=== PATIENT | male | born 1950 | race Caucasian/White ===

== ENCOUNTER → 2017-05-23 | Day surgery (SDC) | payer OTHER ==
[~2017-05-23] MED LIST: ACET500T68 PO; ASPI-630 PO; ASPI81TA50 PO; BACL10TA PO; CELE200C PO; DULO60CA6 PO; GABA-586 PO; HYDR25TA PO; IV RINGERS,LACTATED 1000ML 1,000 ML IV SCH; MORP15TA PO; MORP60TA PO; OMEG500C PO; OMEP20TA8 PO; ONDA4TAB7 PO; ONDANSETRON PF 4 MG/2 ML VIAL. IV PRN; OXYC-327 PO; OXYC30TA PO; PRAV20TA2 PO; PROCHLORPERAZINE 10 MG/2 ML VIAL. IV PRN; PROPOFOL 40 ML IV ONE; RANI150T2 PO; RIVA10TA PO; SODIUM PHOSPHATES 19/7GM 133 ML ENEMA. ONE; SODIUM PHOSPHATES 19/7GM 133 ML ENEMA. PR ONE; TRAZ50TA15 PO; WARF-78 PO; fentaNYL PF VIAL 100 MCG/2 ML VIAL IV PRN
--- NOTE | 2017-05-23 08:27 | PDOC1 ---
HISTORY & PHYSICAL H&P Arturo Moya [id number] 1950 03/29/2017 02:00 PM 11/13 [facility] [employer] [facility] PATIENTS [facility] [address] [place] [id number] Ph. [phone] Patient: Arturo Moya Date of : 1950 Date: 03/29/2017 2:00 PM Visit Type: Consult This 66 year old male presents for Dysphagia and Rectal pain. History of Present Illness: 1. Dysphagia The symptoms occur with solids and liquids which cause choking and gagging with food sticking in the lower chest. The symptoms are felt to be related to meals. The symptoms are not related to history of stroke. There is no history of Yan's esophagus, reflux or stroke. The patient denies aggravating factors. The patient denies relieving factors. The patient is also experiencing choking and food sticking. The patient denies anorexia, bloating, chest pain, hoarseness or nausea. Additional information: has been having periodic episodes of food impaction. 2. Rectal pain Has issue with some rectal pain. Has history of multiple colonic polyp removed before and also had partial colectomy. INTAKE COMMENTS: Intake Comments: Nurse Note: the pt states that he is having rectal pain and dysphagia. The pt states that he has had a partial colectomy. He states that he has a hx of colon polyps. PROBLEM LIST: No active problems PAST MEDICAL/SURGICAL HISTORY (Detailed) Disease/disorder Onset Date Management Date Comments knee replacement Hip replacement Colectomy Medications (Active): Started Medication Directions Instruction Stopped aspirin 325 mg tablet take 2 tablet by oral route every 6 hours as needed gabapentin take 1 capsule by oral route 3 times every day omeprazole take 1 capsule by oral route every day before a meal Tylenol 325 mg tablet take 1 tablet by oral route every 4 hours as needed Allergies: Ingredient Reaction Medication Name Comment NAPROXEN SODIUM Aleve IBUPROFEN REVIEW OF SYSTEMS System Neg/Pos Details Constitutional Negative Chills, fever, malaise and weight loss. ENMT Negative Hoarseness and sore throat. Eyes Negative Double vision. Respiratory Negative Dyspnea and wheezing. Cardio Negative Chest pain and irregular heartbeat/palpitations. GI Positive Choking, Food sticking, See HPI. GI Negative Anorexia, bloating, nausea and see HPI. Negative Dysuria and hematuria. Endocrine Negative Cold intolerance and heat intolerance. Psych Negative Anxiety. Integumentary Negative Hives and rash. MS Negative Joint pain. Osmel/Lymph Negative Easy bleeding and easy bruising. Allergic/Immuno Negative Food allergies. VITAL SIGNS Time BP mm/Hg Pulse /min Resp /min Temp F Ht ft Ht in Ht cm Wt lb Wt kg BMI kg/ m2 BSA m2 O2 Sat% 3:24 PM 98.0 194.00 87.997 Time Measured by 3:24 PM Gabby Rivera PHYSICAL EXAM: Exam Findings Details Constitutional Normal Well developed. Eyes Normal Conjunctiva - Right: Normal, Left: Normal. Sclera - Right: Normal, Left: Normal. Nasopharynx Normal Lips/teeth/gums - Normal. Neck Exam Normal Inspection - Normal. Thyroid gland - Normal. Respiratory Normal Inspection - Normal. Auscultation - Normal. Cardiovascular Normal Regular rate and rhythm. No murmurs, gallops, or rubs. Vascular Normal Pulses - Carotids: Normal, Femoral: Normal, Dorsalis pedis: Normal. Abdomen Normal Inspection - Normal. Anterior palpation - No guarding. No abdominal tenderness. No hepatic enlargement. No splenic enlargement. No hernia. No ascites. Skin Normal Inspection - Normal. Extremity Normal No edema. Psychiatric * Oriented to time, place, person and situation. Psychiatric Normal Appropriate mood and effect. Assessment/Plan # Detail Type Description 1. Assessment Dysphagia, unspecified type (R13.10). Patient Plan schedule EGD at [facility] Plan Orders Further diagnostic evaluations ordered today include(s) EGD w/ dilation over guidewire to be performed today. 2. Assessment History of colon polyps (Z86.010). Patient Plan schedule Colonoscopy at [facility] Plan Orders Further diagnostic evaluations ordered today include(s) Colonoscopy to be performed today. He is to schedule a follow-up visit with Larry Thompson MD upon completion of work-up Electronically signed by: Larry Thompson MD 03/29/2017 04:28 PM Document generated by: Larry Thompson 03/29/2017 04:28 PM Ranjit Martínez MD, Family Practice; Laith Colbert MD Internal Medicine; Ousmane Herron MD, Internal Medicine; Pete Thompson MD Internal Medicine; Larry Thompson MD, Gastroenterology; Ryne De Oliveira MD, Rheumatology, S. Amanuel Castle, Physical Medicine[facility] [employer] ------ 05/23/17 Patient seen and examined. No change in H&P. LARRY THOMPSON MD May 23, 2017 08:27
[2017-05-23 09:28] VITALS: BP 115/85
== END | disposition home or self-care (01) ==
LOC: ENDOS 07:42 → EEVIPCON 08:30
PROVIDERS: ATTEND Internal Medicine Gastroenterology
DX: Z09 Encounter for follow-up examination after completed treatment for conditions other than malignant neoplasm (principal); Z87.19 Personal history of other diseases of the digestive system; K60.2 Anal fissure, unspecified; K62.89 Other specified diseases of anus and rectum; E78.00 Pure hypercholesterolemia, unspecified; K21.9 Gastro-esophageal reflux disease without esophagitis; M19.90 Unspecified osteoarthritis, unspecified site; E11.9 Type 2 diabetes mellitus without complications; F41.9 Anxiety disorder, unspecified; F32.9 Major depressive disorder, single episode, unspecified; F17.200 Nicotine dependence, unspecified, uncomplicated; Z87.39 Personal history of other diseases of the musculoskeletal system and connective tissue; Z96.659 Presence of unspecified artificial knee joint; Z96.649 Presence of unspecified artificial hip joint; Z83.3 Family history of diabetes mellitus; Z88.6 Allergy status to analgesic agent
CPT/HCPCS: 43248; 45378; J2704